=== PATIENT | female | born 1990 | race Caucasian/White ===

== ENCOUNTER 2019-10-16 12:47 | Emergency (ER) | payer OTHER ==
[~2019-10-16] VITALS: Ht 162.6 cm; Wt 63.3 kg
[2019-10-16 13:31] VITALS: BP 125/63
--- NOTE | 2019-10-16 13:40 | NUR ---
TRIAGE COMPLETE. RETURNED TO [facility] AWAITNG BED IN ED.
--- NOTE | 2019-10-16 14:29 | NUR ---
PT TO ER BED 2
[2019-10-16] MEDS ORDERED: KETOROLAC 60 MG/2 ML VIAL IM ONE (15:15)
[2019-10-16] MEDS ORDERED: HYDROcodone/APAP 5/325 MG 1 TAB TAB PO ONE (15:15)
[2019-10-16 16:32] VITALS: BP 136/84
--- NOTE | 2019-10-16 16:34 | NUR ---
Stable VSS Denies Pain PA has reassed and Dc'd home To exit
== END 2019-10-16 16:34 | disposition home or self-care (01) ==
LOC: MED 12:47
DX: S39.012A Strain of muscle, fascia and tendon of lower back, initial encounter (principal); X58.XXXA Exposure to other specified factors, initial encounter; Y93.89 Activity, other specified; Y92.89 Other specified places as the place of occurrence of the external cause; Y99.8 Other external cause status
CPT/HCPCS: 81025; 96372; 99283; J1885; Q0163

== ENCOUNTER 2019-10-29 20:02 | Emergency (ER) | payer OTHER ==
[~2019-10-29] VITALS: Ht 162.6 cm; Wt 61.2 kg
[2019-10-29 20:13] VITALS: BP 102/64
[2019-10-29 20:41] VITALS: BP 102/64
== END 2019-10-29 22:45 | disposition home or self-care (01) ==
LOC: MED 20:02
DX: G89.21 Chronic pain due to trauma (principal); M25.561 Pain in right knee; Z91.013 Allergy to seafood
CPT/HCPCS: 29505; 73562; 99283

== ENCOUNTER 2020-08-29 09:05 | Emergency (ER) | payer OTHER ==
[~2020-08-29] VITALS: Ht 162.6 cm; Wt 64.9 kg
[2020-08-29 09:09] VITALS: BP 122/64
--- NOTE | 2020-08-29 09:15 | NUR ---
patient ambulated to er bed 05
--- NOTE | 2020-08-29 09:20 | NUR ---
C/O HERNIA PAIN TO L SIDE OF ABD. PT STATES SHE WAS DX WITH THE HERNIA MARCH 2020 AND IT HAS SINCE BEGAN TO GET LARGER AND MORE PAINFUL. MORE PAINFUL WITH PRESSURE.
[2020-08-29] MEDS ORDERED: DOPPLER MC ONE (10:38)
[2020-08-29 11:25] VITALS: BP 122/64
== END 2020-08-29 11:25 | disposition home or self-care (01) ==
LOC: MED 09:05
DX: R10.9 Unspecified abdominal pain (principal); K86.2 Cyst of pancreas; R03.0 Elevated blood-pressure reading, without diagnosis of hypertension; R11.0 Nausea; F17.200 Nicotine dependence, unspecified, uncomplicated; F12.90 Cannabis use, unspecified, uncomplicated
CPT/HCPCS: 81025; 99284

== ENCOUNTER 2023-03-02 03:45 | Emergency (ER) | payer OTHER ==
[~2023-03-02] VITALS: Ht 162.6 cm; Wt 62.1 kg
[2023-03-02 03:50] VITALS: BP 115/74
--- NOTE | 2023-03-02 03:50 | NUR ---
to bed ambulatory
--- NOTE | 2023-03-02 04:10 | NUR ---
Patient resting in bed, A/Ox4, chest rise and fall symmetrical, no s/s of distress, on monitor.
[2023-03-02] MEDS ORDERED: ONDANSETRON 4 MG ODT PO ONE (04:20)
[2023-03-02 04:33] LABS: APPEARANCE,URINE CLEAR (CLEAR); BILIRUBIN,URINE NEGATIVE (NEGATIVE); BLOOD, URINE NEGATIVE (NEGATIVE); COLOR,URINE YELLOW (YELLOW); LEUKOCYTE ESTERASE ,URINE NEGATIVE (NEGATIVE); NITRITE, URINE NEGATIVE (NEGATIVE); PH,URINE 7.5 (5.0-9.0); UGLUCOSE NEGATIVE (NEGATIVE)
[2023-03-02] MEDS ORDERED: diphenhydrAMINE 50 MG/ML VIAL IVP ONE (04:40)
[2023-03-02] MEDS ORDERED: METOCLOPRAMIDE 10 MG/2 ML INJ VIAL IVP ONE (04:40)
[2023-03-02] MEDS ORDERED: NACL 0.9% 1,000 ML IV ONE (04:40)
[2023-03-02 05:34] LABS: BASOPHILS % (AUTO) 0.2 % (0.0-2.0); EOSINOPHILS # (AUTO) 0.1 K/uL (0-0.4); EOSINOPHILS % (AUTO) 0.8 % (0.0-4.0); HEMATOCRIT 38.5 % (36-48); HEMOGLOBIN 13.5 g/dL (12.0-16.0); LYMPHOCYTES % (AUTO) 12.4 % (20.5-51.1); MEAN CORPUSCULAR HEMOGLOBIN 35 pg (27-31); MEAN CORPUSCULAR HGB CONC 35 g/dL (33-37); MEAN CORPUSCULAR VOLUME 99.5 fL (80-94); MONOCYTES # (AUTO) 0.6 K/uL (0.8-1.0); MONOCYTES % (AUTO) 7.1 % (1.7-9.3); NEUTROPHILS # (AUTO) 6.7 K/uL (1.8-7.7); NEUTROPHILS % (AUTO) 79.5 % (42.2-75.2); PLATELET COUNT (AUTO) 194 K/uL (140-450); RED BLOOD CELL COUNT(AUTO) 3.87 MIL/uL (4.20-5.40); RED CELL DISTRIBUTION WIDTH 12.5 % (11.6-13.7); WHITE BLOOD COUNT (AUTO) 8.4 K/uL (4.8-10.8)
[2023-03-02] MEDS ORDERED: MAG-27 PO (05:49)
[2023-03-02] MEDS ORDERED: METO-485 PO (05:49)
[2023-03-02 05:53] LABS: ALBUMIN 3.6 g/dL (3.4-5.0); CARBON DIOXIDE 25.7 mmol/L (21-32); CREATININE 0.7 mg/dL (0.6-1.3); POTASSIUM 3.7 mmol/L (3.5-5.1); TOTAL BILIRUBIN 0.7 mg/dL (0.0-1.0)
--- NOTE | 2023-03-02 06:00 | NUR ---
Patient resting in bed, A/Ox4, chest rise and fall symmetrical, no c/o pain or s/s of distress, on monitor.
[2023-03-02 06:09] VITALS: BP 106/56
== END 2023-03-02 04:10 | disposition home or self-care (01) ==
LOC: MED 03:45
DX: R11.2 Nausea with vomiting, unspecified (principal); Z79.899 Other long term (current) drug therapy
CPT/HCPCS: 36415; 80053; 81003; 81025; 83690; 85025; 96361; 96374; 96375; 99284; J1200; J2765; J7030; Q0162